=== PATIENT | female | born 1985 | race Caucasian/White ===

== ENCOUNTER → 2016-06-20 | Outpatient (CLI) | payer OTHER ==
[2016-06-20 08:36] LABS: BILIRUBIN,TOTAL 0.6 mg/dL (0.3-1.2); TOTAL PROTEIN 7.8 g/dL (6.1-8.0)
[2016-06-20 09:49] LABS: HEMOGLOBIN A1C 5.53 % (4.2-6.0); MEAN BLOOD GLUCOSE (CALC) 98.149 mg/dL
== END ==
LOC: LAB 07:48
PROVIDERS: ATTEND Nurse Practitioner Family
DX: R73.01 Impaired fasting glucose (principal); R79.9 Abnormal finding of blood chemistry, unspecified
CPT/HCPCS: 36415; 80076; 83036; 84146

== ENCOUNTER → 2016-07-28 | Outpatient (CLI) | payer OTHER ==
[2016-07-28 09:20] LABS: SERUM ALBUMIN 4.7 g/dL (3.5-4.8)
== END ==
LOC: LAB 07:37
PROVIDERS: ATTEND Nurse Practitioner Family
DX: R79.89 Other specified abnormal findings of blood chemistry (principal)
CPT/HCPCS: 36415; 80076

== ENCOUNTER → 2016-08-29 | Outpatient (CLI) | payer OTHER ==
[2016-08-29 11:25] LABS: HEMATOCRIT 41.3 % (37.0-47.0); HEMOGLOBIN 13.9 g/dL (12.0-16.0); MEAN CORPUSCULAR HEMOGLOBIN 28.9 PG (27-31); MEAN CORPUSCULAR HGB CONC 33.7 g/dL (33-37); MEAN CORPUSCULAR VOLUME 85.9 FL (81-99); MEAN PLATELET VOLUME 10.7 FL (7.4-12.2); NEUTROPHILS % (AUTO) 53.1 % (50-80); RED BLOOD COUNT 4.81 10^6/uL (4.20-5.40)
[2016-08-29 11:26] LABS: BASOPHILS # (AUTO) 0.19 10*3/UL; BASOPHILS % (AUTO) 2.8 % (0-1); EOSINOPHILS # (AUTO) 0.26 10*3/UL; EOSINOPHILS % (AUTO) 3.8 % (0-8); LYMPHOCYTES # (AUTO) 2.11 10*3/uL; MONOCYTES # (AUTO) 0.62 10*3/UL (0.3-0.8); MONOCYTES % (AUTO) 9.1 % (5-15); PLATELET MORPHOLOGY COMMENT NORMAL MORPHOLOGY (NORM); RBC MORPHOLOGY COMMENT NORMAL MORPHOLOGY (NORM); WBC MORPHOLOGY COMMENT NORMAL MORPHOLOGY (NORM)
[2016-08-29 13:00] LABS: BLOOD UREA NITROGEN 14 mg/dL (7-22); CALCIUM 9.6 mg/dL (8.7-10.7); CHOL/HDL RATIO 2.29 RATIO (0-4.0); EST GLOMERULAR FILTRATION > 60 (>60 ml/min/1.73m(2)); GAMMA GLUTAMYL TRANSPEPTIDASE 29 IU/L (8-78); HDL CHOLESTEROL 51 mg/dL (40-150); LIPASE 93 IU/L (23-300); SERUM ALBUMIN 4.5 g/dL (3.5-4.8); SERUM CHOLESTEROL 117 mg/dL (120-200)
[2016-08-30 12:16] LABS: HEP B CORE IGM ANTIBODY Negative (Negative); HEPATITIS A IGM Negative (Negative); HEPATITIS B SURFACE AG Negative (Negative)
[2016-08-30 15:17] LABS: ANTI-SMOOTH MUSCLE ANTIBODY Negative (Negative)
[2016-08-31 09:37] LABS: ALPHA-1-ANTITRYPSIN QUANT 135 mg/dL (100 - 190); IGA SERUM 149 mg/dL (61 - 356); TISSUE TRANSGLUT AB IGA 1.3 U/mL (())
== END ==
LOC: LAB 09:56
PROVIDERS: ATTEND Internal Medicine Gastroenterology
DX: R94.5 Abnormal results of liver function studies (principal); E11.9 Type 2 diabetes mellitus without complications; E03.9 Hypothyroidism, unspecified
CPT/HCPCS: 36415; 80053; 80061; 82103; 82105; 82150; 82390; 82728; 82784; 82977; 83516; 83540; 83550; 83690; 84443; 85025; 85610; 86038; 86255; 86705; 86709; 86803; 87340

== ENCOUNTER → 2016-08-30 | Outpatient (CLI) | payer OTHER ==
--- NOTE | 2016-08-30 09:32 | DI ---
GALLBLADDER AND LIVER ULTRASOUND, 08/30/2016 7:44 AM: Clinical History: Elevated liver function tests. Type 2 diabetes mellitus. Previous Exam: None at this facility. Technique: Scans are performed through the right upper quadrant in multiple projections. The patient was rolled from side to side and the gallbladder was balloted with the probe to facilitate visualizat ion of small gallstones. The gallbladder is well distended and has a normal wall thickness. There are no gallstones. The commo n bile duct measures 5 mm. The pancreas is visualized from the head to the body and is normal. There is mild hepatomegaly. There is diffuse increased echogenicity with decreased through transmission con sistent with fatty infiltration. IVC, and aorta are normal. Readin. Mild hepatomegaly with diffuse fatty infiltration. 2. Normal gallbladder, right kidney, pancreas, aorta, and IVC.
== END ==
LOC: US 07:39
PROVIDERS: ATTEND Internal Medicine Gastroenterology
DX: R94.5 Abnormal results of liver function studies (principal); K76.0 Fatty (change of) liver, not elsewhere classified; E11.9 Type 2 diabetes mellitus without complications; E03.9 Hypothyroidism, unspecified
CPT/HCPCS: 76705